=== PATIENT | male | born 1980 | race Caucasian/White ===

== ENCOUNTER 2020-06-08 13:09 | Emergency (ER) | payer SELFPAY ==
[2020-06-08] MEDS ORDERED: ONDANSETRON ODT 8 MG TAB SL ONE (14:06)
[2020-06-08] MEDS ORDERED: ACETAMINOPHEN 500 MG TAB PO ONE (14:07)
--- NOTE | 2020-06-08 14:16 | ED.PDOC ---
History of Present Illness - General Chief Complaint: Trauma Stated Complaint: hit in head with steel beam yesterday Time Seen by Provider: 06/08/20 13:23 Source: patient, family Exam Limitations: no limitations - History of Present Illness Initial Comments: PT WAS HIT IN THE BARE HEAD YESTERDAY AT WORK BY A 25 FT STEEL BEAM. HE HAD HARD HAT ON. THEY WERE HOISTING A 25 FT STEEL BEAM. HE LOOKED UP, HARD HAT FELL OFF, BEAM FELL AND COLLIDED WITH HIS FRONTAL REGION OF HEAD. NAUSEA AND VOMITING TODAY. 7 EPISODES OF EMESIS TODAY (5 DRY HEAVE, 2 VOMITUS). HAS DRUNK 6 BOTTLES WATER TODAY TO REPLETE HIS FLUID LOSSES. HEAD AND NECK HURT (BUT DENIES AN ACTUAL HEADACHE). HIS NOTICES HE HAD DIFFICULTY WRITING TODAY. Occurred: yesterday Severity: moderate Pain Location: head, neck Method of Injury: direct blow Improving Factors: nothing Worsening Factors: movement Loss of Consciousness: no loss of consciousness Associated Symptoms (Fall): neck pain Allergies/Adverse Reactions: Allergies Penicillins Allergy (Verified 06/08/20 13:29) Home Medications: Ambulatory Orders Acetaminophen W/ Codeine [Tylenol W/ CODEINE #3] 1 ea PO Q6H #30 05/03/15 Naproxen [Naprosyn] 500 mg PO BID #30 tab 05/03/15 Tramadol HCl [Ultram] 50 mg PO Q6H #30 tab 05/03/15 Ondansetron Odt [Zofran ODT] 8 mg SL TID PRN #15 tab 06/08/20 Review of Systems - Review of Systems Constitutional: Denies: chills, fever EENTM: Denies: ear pain, nose pain, throat pain, mouth pain Respiratory: Denies: cough, short of breath Cardiology: Denies: chest pain, palpitations Gastrointestinal/Abdominal: States: nausea, vomiting. Denies: abdominal pain Genitourinary: States: no symptoms reported Musculoskeletal: States: back pain - MILD, C/W BASELINE. , neck pain Skin: States: rash. Denies: lumps Neurological: Denies: headache, numbness, paresthesia, tingling, tremors, weakness Endocrine: States: no symptoms reported Hematologic/Lymphatic: States: no symptoms reported All other Systems: Reviewed and Negative Past Medical History (General) - Patient Medical History Surgical History: tonsillectomy - Activities of Daily Living Hospice Agency (if applicable):: None - Female History Patient is a Female of Child Bearing Age (10 -59 yrs old): No Family Medical History - Family History Mother Family History: Unknown Physical Exam - Physical Exam General Appearance: Alert, Well Developed Head Injury: other - ABRASION OF FRONTAL REGION OF SCALP. NO LACERATION. Eye Exam: bilateral normal ENT Exam: hearing grossly normal, no evidence of ENT injury, no dental injury Neck Exam: normal inspection, limited range of motion - D/T PAIN. , painful r sudhir of motion - PAINLESS FLEXION/EXTENSION, BUT PAINFUL BL ROTATION AND LATERAL FLEXION. , paraspinous muscle tender - LEFT ASPECT. 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 NL DYSDIADOCOKINESIA EXAM. Skin Exam: normal color, warm/dry, other - FAINT, PARTIAL THICKNESS ABRASION OF FRONTAL SCALP. - Redford Coma Score Best Eye Response (Reji): (4) open spontaneously Best Verbal Response (Reji): (5) oriented Best Motor Response (Reji): (6) obeys commands Reji Total: 15 Progress - Results/Orders Results/Orders: HEAD AND NECK CT NEG FOR HEMORRHAGE OR FRACTURE. STRAIGHTENING OF C-SPINE LORDOSIS, THUS CERVICAL STRAIN/SPASM. NAUSEA TODAY INDICATES MID CONCUSSION. RX ZOFRAN PRN. F/U W/ PCP TO ENSURE IMPROVING. Departure - Departure Clinical Impression: Acute neck sprain Qualifiers: Encounter type: initial encounter Qualified Code(s): S13.9XXA - Sprain of joints and ligaments of unspecified parts of neck, initial encounter Head contusion Qualifiers: Encounter type: initial encounter Laterality: unspecified laterality Mild concussion Qualifiers: Encounter type: initial encounter Loss of consciousness presence/duration: without LOC Qualified Code(s): S06.0X0A - Concussion without loss of consciousness, initial encounter Disposition: Discharge to Home or Self Care Condition: Good Departure Forms: ED Discharge - Pt. Copy, Patient Portal Self Enrollment Instructions: DI for Trauma, Concussion, Adult (DC), Neck Sprain (DC) Diet: resume usual diet Referrals: RENZO PISANO IV, [facility] [Primary Care Provider] - 1 Week Prescriptions: Ondansetron Odt [Zofran ODT] 8 mg SL TID PRN #15 tab PRN Reason: Nausea Home Medications: Ambulatory Orders Acetaminophen W/ Codeine [Tylenol W/ CODEINE #3] 1 ea PO Q6H #30 05/03/15 Naproxen [Naprosyn] 500 mg PO BID #30 tab 05/03/15 Tramadol HCl [Ultram] 50 mg PO Q6H #30 tab 05/03/15 Ondansetron Odt [Zofran ODT] 8 mg SL TID PRN #15 tab 06/08/20 Additional Instructions: Please take Tylenol or ibuprofen as needed for neck pain. Take the Zofran prescription under the tongue as needed for nausea. Until your symptoms resolve, please be cautious to not get re-injured.
--- NOTE | 2020-06-08 15:07 | CT ---
EXAM DESCRIPTION: Cervical Spine CLINICAL HISTORY: Hit in head by 25 ft steel beam yesterday. COMPARISON: None Available. TECHNIQUE: Cervical CT is performed with thin-section axial imaging. MPRs are created and reviewed as well. This exam was performed according to our departmental dose-optimization program, which includes automated exposure control, adjustment of the mA and/or kV according to patient size and/or use of iterative reconstruction technique. FINDINGS: Loss of normal lordosis is noted without malalignment of the spine. Disc and vertebral height is maintained. Craniocervical junction and ring of C1 intact. Intact odontoid and no evidence of locked or jumped facet. Intact spinous processes and vertebral bodies. Adequate spinal canal and lateral recesses and neural foramina. No significant degenerative disease. No prevertebral soft tissue masses evident. Small normal lymph nodes bilaterally within the neck. Larynx and thoracic inlet region is unremarkable IMPRESSION: Reversal of normal cervical lordosis suggesting cervical strain or spasm, otherwise negative CT of the neck without contrast enhancement. No fracture or dislocation or subluxation seen. Electronically signed by: Steven Bains MD 06/08/2020 3:[address] [facility]
--- NOTE | 2020-06-08 15:13 | CT ---
EXAM DESCRIPTION: Head CLINICAL HISTORY: Head vs steel beam yesterday. Head neck pain. COMPARISON: 01/18/2010 TECHNIQUE: Multiple axial images of the head without contrast. Multiplanar reformatted images. This exam was performed according to our departmental dose-optimization program, which includes automated exposure control, adjustment of the mA and/or kV according to patient size and/or use of iterative reconstruction technique. FINDINGS: There is no CT evidence of intracranial hemorrhage, mass effect, or large territory infarction. The brain parenchyma and ventricles are normal. There are no abnormal extra-axial fluid collections. Vascular structures are unremarkable. There is no acute calvarial defect. The visualized paranasal sinuses and the mastoids are clear. IMPRESSION: 1. No CT evidence of an acute intracranial abnormality. If there is concern for an acute or subacute infarct, consider follow-up MRI. Electronically signed by: Benny Craig MD 06/08/2020 3:12 PM [facility]
[2020-06-08 15:49] VITALS: BP 139/81; TEMP 98.2; O2SAT 97
== END 2020-06-08 15:47 | disposition home or self-care (01) ==
LOC: ER 13:09
DX: S06.0X0A Concussion without loss of consciousness, initial encounter (principal); S13.9XXA Sprain of joints and ligaments of unspecified parts of neck, initial encounter; S00.91XA Abrasion of unspecified part of head, initial encounter; S00.93XA Contusion of unspecified part of head, initial encounter; Z88.0 Allergy status to penicillin; W20.8XXA Other cause of strike by thrown, projected or falling object, initial encounter; Y99.0 Civilian activity done for income or pay; Y92.9 Unspecified place or not applicable